=== PATIENT | female | born 1990 | race Caucasian/White ===

== ENCOUNTER 2019-09-26 11:08 | Emergency (ER) | payer SELFPAY ==
[2019-09-26 11:50] LABS: ABSOLUTE BASOPHILS # (AUTO) 0.1 10^3/uL (0.0-0.2); ABSOLUTE LYMPHOCYTES (AUTO) 1.1 10^3/uL (0.5-4.7); ABSOLUTE MONOCYTES (AUTO) 0.7 10^3/uL (0.1-1.4); ABSOLUTE NEUT (AUTO) 10.4 10^3/uL (1.7-8.2); BASOPHILS % (AUTO) 0.8 % (0-2); EOSINOPHILS % (AUTO) 0.3 % (0-6); HEMATOCRIT 45.7 % (36.0-47.0); HEMOGLOBIN 15.3 g/dL (12.0-15.5); LYMPHOCYTES % (AUTO) 9.2 % (13-45); MEAN CORPUSCULAR HEMOGLOBIN 27.6 pg (27.0-33.4); MEAN CORPUSCULAR HGB CONC 33.5 g/dL (32.0-36.0); MEAN CORPUSCULAR VOLUME 82 fl (80-97); MONOCYTES % (AUTO) 5.4 % (3-13); PLATELET COUNT 373 10^3/uL (150-450); RED BLOOD COUNT 5.55 10^6/uL (3.72-5.28); RED CELL DISTRIBUTION WIDTH 14.9 % (11.5-14.0); SEGMENTED NEUTROPHILS % (AUTO) 84.3 % (42-78); TOTAL CELLS COUNTED % (AUTO) 100 %; WHITE BLOOD COUNT 12.4 10^3/uL (4.0-10.5)
[2019-09-26 12:08] LABS: ALBUMIN 5.3 g/dL (3.5-5.0); ALKALINE PHOSPHATASE 95 U/L (38-126); ASPARTATE AMINO TRANSFERASE 18 U/L (14-36); BILIRUBIN,DIRECT 0.1 mg/dL (0.0-0.4); BILIRUBIN,TOTAL 0.5 mg/dL (0.2-1.3); BLOOD UREA NITROGEN 25 mg/dL (7-20); CALCIUM 10.5 mg/dL (8.4-10.2); CARBON DIOXIDE 18 mmol/L (22-30); CHLORIDE 97 mmol/L (98-107); GLUCOSE 389 mg/dL (75-110); POTASSIUM 4.3 mmol/L (3.6-5.0); TOTAL PROTEIN 8.7 g/dL (6.3-8.2)
[2019-09-26 12:19] LABS: ANION GAP 21 (5-19)
[2019-09-26] MEDS ORDERED: RINGERS SOLUTION,LACTATED 1,000 ML IV ONE ×2 (12:48→13:46)
--- NOTE | 2019-09-26 12:48 | ER Document Report ---
Entered by MARTI SHAVER SCRIBE 09/26/19 1157 Acting as scribe for:VANI FALK MD ED Blood Sugar Problem - General Chief Complaint: High Blood Sugar Stated Complaint: HIGH BLOOD SUGAR Time Seen by Provider: 09/26/19 11:24 Primary Care Provider: KIANNA URBINA [NO LOCAL MD] - Follow up as needed Mode of Arrival: Ambulatory Information source: Patient Notes: This 29-year-old female patient with type 1 diabetes presents to the emergency d [facility] today with complaints of elevated blood sugars. Patient states that she lives emergency and she is here currently visiting her best friend. Patient states she forgot to take her insulin last night and is unclear whether or not she took it this morning prior to arrival. Patient complains of nausea but has not vomited. Patient reports that she normally takes 50 units of Lantus in the morning and at night and then 7 units of NovoLog prior to meals. - Related Data Allergies/Adverse Reactions: No Known Allergies Allergy (Verified 09/26/19 11:26) Past Medical History - General Information source: Patient - Social History Smoking Status: Current Every Day Smoker Cigarette use (# per day): Yes Frequency of alcohol use: Social Drug Abuse: None Lives with: Family Family History: Reviewed & Not Pertinent Patient has homicidal ideation: No Endocrine Medical History: Reports: Hx Diabetes Mellitus Type 1 Past Surgical History: Reports: Hx Cholecystectomy, Hx Tubal Ligation Review of Systems - Review of Systems Constitutional: See HPI, Other - Elevated blood sugar EENT: No symptoms reported Cardiovascular: No symptoms reported Respiratory: No symptoms reported Gastrointestinal: See HPI, Nausea Genitourinary: No symptoms reported Female Genitourinary: No symptoms reported Musculoskeletal: No symptoms reported Skin: No symptoms reported Hematologic/Lymphatic: No symptoms reported Neurological/Psychological: No symptoms reported -: Yes All other systems reviewed and negative Physical Exam - Vital signs Vitals: Temp 99.1 F 09/26/19 11:11 - Notes Notes: Physical Exam: General: Alert, ketone odor on breathe. HEENT: Normocephalic. Atraumatic. PERRL. Extraocular movements intact. Oropharynx clear. Dry mucous membranes. Neck: Supple. Non-tender. Respiratory: No respiratory distress. Clear and equal breath sounds bilaterally. Cardiovascular: Tachycardic, regular rhythm. Abdominal: Normal Inspection. Non-tender. No distension. Normal Bowel Sounds. Back: No gross abnormalities. Extremities: Moves all four extremities. Upper extremities: Normal inspection. Normal ROM. Lower extremities: Normal inspection. No edema. Normal ROM. Neurological: Normal cognition. AAOx4. Normal speech. Psychological: Normal affect. Normal Mood. Skin: Warm. Dry. Normal color. Course - Re-evaluation Re-evalutation: 09/26/19 12:50 The patient is not a very good historian. Initially she stated that she was late to take her dose of NovoLog. She states she normally takes it after lunch. She was telling me this at 12 noon. Eventually I was able to determine that she takes Lantus 50 units twice daily and did not take it last night and probably did not take it this morning. She takes NovoLog 7 units before meals. It is very vague about what insulin she did take this morning. EMS initially got a blood sugar of 547. When the patient arrived to the emergency room the sugar was 413 on Accu-Chek, about 25 minutes later and perhaps 500 mL's of LR later, her sugar was 389. Her serum CO2 is 18, anion gap is 21, and BUN is 25. Due to the unknown amount of insulin that may be getting absorbed as she gets hydrated, and the fact that she is only mildly acidotic, we will continue to hydrate and follow her sugars. 09/26/19 14:57 Accu-Chek is now down to 229 without giving any insulin, only IV fluids. She states she is feeling much better, she has no nauseousness, and has been tolerating p.o. fluids well. She is on her third liter of IV fluids at this time. When that liter has completed she will be discharged home with some Zofran in case she is nauseated. She understands the need to continue drinking fluids, start eating lightly, and to check her sugars and dose her insulin accordingly. - Vital Signs Vital signs: Temp Pulse Resp BP Pulse Ox 99.1 F 21 H 113/84 96 09/26/19 11:11 09/26/19 13:01 09/26/19 13:00 09/26/19 12:01 - Laboratory Result Diagrams: 09/26/19 11:40 09/26/19 11:40 Laboratory results interpreted by me: 09/26/19 09/26/19 09/26/19 11:14 11:40 11:40 WBC 12.4 H RBC 5.55 H RDW 14.9 H Lymph % (Auto) 9.2 L Absolute Neuts (auto) 10.4 H Seg Neutrophils % 84.3 H Sodium 135.7 L Chloride 97 L Carbon Dioxide 18 L Anion Gap 21 H BUN 25 H Glucose 389 H POC Glucose 413 H* Calcium 10.5 H Total Protein 8.7 H Albumin 5.3 H Urine Protein Urine Glucose (UA) Urine Ketones Ur Leukocyte Esterase 09/26/19 09/26/19 14:07 14:47 WBC RBC RDW Lymph % (Auto) Absolute Neuts (auto) Seg Neutrophils % Sodium Chloride Carbon Dioxide Anion Gap BUN Glucose POC Glucose 210 H Calcium Total Protein Albumin Urine Protein 30 H Urine Glucose (UA) >=500 H Urine Ketones 80 H Ur Leukocyte Esterase TRACE H - EKG Interpretation by Me EKG shows normal: Sinus rhythm, Edmond, Intervals, QRS Complexes, ST-T Waves Rate: Normal - 98 Rhythm: NSR Critical Care Note - Critical Care Note Total time excluding time spent on procedures (mins): 35 Comments: Please 35 minutes spent examining the patient and trying to get a clear history. Multiple rechecks to see how she is doing with her nauseousness, and her p.o. intake. Rechecks of her sugars watching them come down without giving any insulin. Checking on her IV fluids to ensure they are infusing. I have called to get an IV pole so that the fluids would hang higher and run faster. I have ensured that the initial IV was carefully secured as it was precarious when she first arrived. I have ensured that she understands how to hold her hand to get maximum flow. I have checked to find that her fluids were disconnected to go to the restroom and then were not reconnected when she came back to the room for quite some time. Discharge - Discharge Clinical Impression: Dehydration Diabetic ketoacidosis Qualifiers: Diabetes mellitus type: type 1 Diabetes mellitus complication detail: without coma Qualified Code(s): E10.10 - Type 1 diabetes mellitus with ketoacidosis without coma Condition: Stable Disposition: HOME, SELF-CARE Additional Instructions: Take Zofran for nausea if needed. Drink plenty of fluids throughout the day today. Eat lightly today. Check your sugars regularly and dose your insulin accordingly. Follow-up with your primary care provider as needed. RETURN TO THE EMERGENCY ROOM IF ANY NEW OR WORSENING SYMPTOMS. Referrals: LOCALMD,NO [NO LOCAL MD] - Follow up as needed I personally performed the services described in the documentation, reviewed and edited the documentation which was dictated to the scribe in my presence, and it accurately records my words and actions.
[2019-09-26 14:31] LABS: APPEARANCE,URINE CLEAR; BILIRUBIN,URINE NEGATIVE (NEGATIVE); COLOR,URINE YELLOW; GLUCOSE, URINE >=500 mg/dL (NEGATIVE); KETONES,URINE 80 mg/dL (NEGATIVE); LEUKOCYTE ESTERASE,URINE TRACE (NEGATIVE); NITRITE,URINE NEGATIVE (NEGATIVE); PROTEIN,URINE 30 mg/dL (NEGATIVE); URINE SPECIFIC GRAVITY 1.026; UROBILINOGEN,URINE NEGATIVE mg/dL (<2.0)
[2019-09-26] MEDS ORDERED: ONDANSETRON ODT 4 MG TAB (6 TAB/ER DISP) PO PRN (15:04)
[2019-09-26 15:22] VITALS: BP 129/81
--- NOTE | 2019-09-27 13:19 | EKG REPORT ---
SEVERITY:- NORMAL ECG - SINUS RHYTHM : Confirmed by: Jere Elliott 27-Sep-2019 13:18:45
== END 2019-09-26 15:43 | disposition home or self-care (01) ==
LOC: ER 11:08
DX: E10.10 Type 1 diabetes mellitus with ketoacidosis without coma (principal); E86.0 Dehydration; E10.65 Type 1 diabetes mellitus with hyperglycemia; R11.0 Nausea; Z79.4 Long term (current) use of insulin; F17.210 Nicotine dependence, cigarettes, uncomplicated
CPT/HCPCS: 93005; 99291; 96360; 96361; 36415; 82962; 85025; 81025; 80053; 81001; 93010; J7120

== ENCOUNTER 2019-10-23 22:14 | Emergency (ER) | payer SELFPAY ==
[2019-10-24] MEDS ORDERED: ACETAMINOPHEN 325 MG TABLET PO ONE (00:29)
[2019-10-24 03:04] VITALS: BP 132/78
--- NOTE | 2019-10-24 05:19 | ER Document Report ---
Entered by MARTI SHAVER SCRIBE 10/24/19 0200 Acting as scribe for:RIVKA GALVAN DO ED Extremity Problem, Lower - General Chief Complaint: Skin Problem Stated Complaint: BLISTERS ON FEET Time Seen by Provider: 10/24/19 01:47 Information source: Patient Notes: This 29 year old female patient presents to the emergency department today with concerns of pena to bilateral feet. Patient reports that she was chasing after her dog on asphalt barefoot for around 2 minutes today. Patient is a type I diabetic and she is concerned about possible infection of blistered feet. - Related Data Allergies/Adverse Reactions: No Known Allergies Allergy (Verified 10/24/19 00:23) Home Medications: INSULIN Past Medical History - General Information source: Patient - Social History Smoking Status: Current Every Day Smoker Cigarette use (# per day): Yes Frequency of alcohol use: None Drug Abuse: None Lives with: Family Family History: Reviewed & Not Pertinent Patient has homicidal ideation: No Endocrine Medical History: Reports: Hx Diabetes Mellitus Type 1 Past Surgical History: Reports: Hx Cholecystectomy, Hx Tubal Ligation Review of Systems - Review of Systems Constitutional: No symptoms reported EENT: No symptoms reported Cardiovascular: No symptoms reported Respiratory: No symptoms reported Gastrointestinal: No symptoms reported Genitourinary: No symptoms reported Female Genitourinary: No symptoms reported Musculoskeletal: No symptoms reported Skin: See HPI, Lesions Hematologic/Lymphatic: No symptoms reported Neurological/Psychological: No symptoms reported -: Yes All other systems reviewed and negative Physical Exam - Vital signs Vitals: Temp Pulse Resp BP Pulse Ox 98.0 F 87 18 148/88 H 100 10/23/19 22:15 10/23/19 22:15 10/23/19 22:15 10/23/19 22:15 10/23/19 22:15 - Notes Notes: Physical Exam: General: Alert, appears well. HEENT: Normocephalic. Atraumatic. PERRLA. Extraocular movements intact. Oropharynx clear. Neck: Supple. Respiratory: No respiratory distress. Abdominal: Normal Inspection. No distension. Extremities: Moves all four extremities. Neurological: Normal cognition. AAOx4. Normal speech. Psychological: Normal affect. Normal Mood. Skin: Blisters to pads of feet bilaterally, about 6 cm in diameter b/l. Course - Re-evaluation Re-evalutation: 10/24/19 Patient is a 29-year-old female who walks on hot concrete and has blisters to the bottom of her feet. States she is a severe diabetic. Blisters drained. Please see procedure note. Offered to drain them versus keeping them closed. Patient opted to drain them so she could walk on them. Will be started on Keflex. Tetanus up-to-date. Follow-up with PMD. Return if further complaints or concerns. Understands and agrees with plan. Instructed to clean her feet daily and wear closed toed shoes. No other injuries. - Vital Signs Vital signs: Temp Pulse Resp BP Pulse Ox 97.9 F 81 16 132/78 H 100 10/24/19 03:00 10/24/19 03:00 10/24/19 03:00 10/24/19 03:00 10/24/19 03:00 Procedures - Incision and Drainage Left Foot Type: Simple Incision Method: Incision made with needle Amount/type of drainage: serous Right Foot Type: Simple Incision Method: Incision made with needle Amount/type of drainage: serous Discharge - Discharge Clinical Impression: Second degree burn of plantar aspect of foot Qualifiers: Encounter type: initial encounter Laterality: unspecified laterality Qualified Code(s): T25.229A - Burn of second degree of unspecified foot, initial encounter Condition: Stable Disposition: HOME, SELF-CARE Instructions: Pena ([facility]) Additional Instructions: Please follow-up with your doctor this week. Prescriptions: Cephalexin Monohydrate [Keflex 500 mg Capsule] 500 mg PO Q6H 7 Days #30 capsule I personally performed the services described in the documentation, reviewed and edited the documentation which was dictated to the scribe in my presence, and it accurately records my words and actions.
== END 2019-10-24 03:06 | disposition home or self-care (01) ==
LOC: ER 22:14
DX: T25.222A Burn of second degree of left foot, initial encounter (principal); T25.221A Burn of second degree of right foot, initial encounter; X19.XXXA Contact with other heat and hot substances, initial encounter; Y92.009 Unspecified place in unspecified non-institutional (private) residence as the place of occurrence of the external cause; E10.9 Type 1 diabetes mellitus without complications; Z79.4 Long term (current) use of insulin; F17.210 Nicotine dependence, cigarettes, uncomplicated; Z90.49 Acquired absence of other specified parts of digestive tract; Z98.51 Tubal ligation status
CPT/HCPCS: 99283

== ENCOUNTER 2019-10-28 19:00 | Emergency (ER) | payer SELFPAY ==
[2019-10-28 19:12] VITALS: BP 131/94
== END 2019-10-28 20:30 | disposition left against medical advice (07) ==
LOC: ER 19:00
DX: Z53.21 Procedure and treatment not carried out due to patient leaving prior to being seen by health care provider (principal)

== ENCOUNTER 2019-10-28 23:00 | Inpatient (IN) | payer SELFPAY ==
[2019-10-29] MEDS ORDERED: NORMAL SALINE 1000 ML 1,000 ML IV ONE (00:22)
--- NOTE | 2019-10-29 00:34 | ER Document Report ---
ED Medical Screen (RME) - General Chief Complaint: High Blood Sugar Stated Complaint: MIGRAINE Time Seen by Provider: 10/29/19 00:32 Notes: HPI: 29-year-old female who is an insulin-dependent diabetic presenting with generalized headache, back pain and nausea today. Patient states it feels similar to when she ended up in a diabetic coma last year with DKA. No chest pain shortness of breath. Patient states that her blood sugar earlier today was 209. PHYSICAL EXAMINATION: Patient appears moderately uncomfortable. She is moderately tachycardic. Limited exam in triage. She is answering all questions appropriately I have greeted and performed a rapid initial assessment of this patient. A comprehensive ED assessment and evaluation of the patient, analysis of test results and completion of medical decision making process will be conducted by an additional ED providers. - Related Data Allergies/Adverse Reactions: No Known Allergies Allergy (Verified 10/24/19 00:23) Past Medical History Endocrine Medical History: Reports: Hx Diabetes Mellitus Type 1 Past Surgical History: Reports: Hx Cholecystectomy, Hx Tubal Ligation Physical Exam - Vital signs Vitals: Temp Pulse Resp BP Pulse Ox 98.2 F 134 H 20 131/94 H 100 10/28/19 23:49 10/28/19 23:49 10/28/19 23:49 10/28/19 23:49 10/28/19 23:49 Course - Vital Signs Vital signs: Temp Pulse Resp BP Pulse Ox 98.2 F 134 H 20 131/94 H 100 10/28/19 23:49 10/28/19 23:49 10/28/19 23:49 10/28/19 23:49 10/28/19 23:49
[2019-10-29] MEDS ORDERED: PROMETHAZINE HCL INJ 25 MG/1 ML VIAL IM ONE (01:27)
[2019-10-29] MEDS ORDERED: DIPHENHYDRAMINE HCL 50 MG/ML VIAL IM ONE (02:01)
[2019-10-29] MEDS ORDERED: LORAZEPAM INJ 2 MG/1 ML VIAL IV ONE (02:24)
[2019-10-29 02:48] LABS: ABSOLUTE BASOPHILS # (AUTO) 0.2 10^3/uL (0.0-0.2); ABSOLUTE EOSINOPHILS # (AUTO) 0.1 10^3/uL (0.0-0.6); ABSOLUTE LYMPHOCYTES (AUTO) 2.2 10^3/uL (0.5-4.7); EOSINOPHILS % (AUTO) 0.3 % (0-6); HEMOGLOBIN 14.4 g/dL (12.0-15.5); LYMPHOCYTES % (AUTO) 11.1 % (13-45); MONOCYTES % (AUTO) 5.2 % (3-13); TOTAL CELLS COUNTED % (AUTO) 100 %
[2019-10-29] MEDS: RINGERS SOLUTION,LACTATED 1,000 ML IV PRN ×2 (02:50→02:52)
[2019-10-29 02:56] LABS: ABSOLUTE NEUT (AUTO) 16.2 10^3/uL (1.7-8.2); BASOPHILS % (AUTO) 0.9 % (0-2); HEMATOCRIT 46.8 % (36.0-47.0); MEAN CORPUSCULAR HEMOGLOBIN 28.1 pg (27.0-33.4); MEAN CORPUSCULAR HGB CONC 30.7 g/dL (32.0-36.0); MEAN CORPUSCULAR VOLUME 92 fl (80-97); PLATELET COUNT 465 10^3/uL (150-450); RED BLOOD COUNT 5.11 10^6/uL (3.72-5.28); RED CELL DISTRIBUTION WIDTH 16.3 % (11.5-14.0); SEGMENTED NEUTROPHILS % (AUTO) 82.5 % (42-78); WHITE BLOOD COUNT 19.7 10^3/uL (4.0-10.5)
[2019-10-29 02:57] LABS: VENOUS BLOOD BASE EXCESS -24.6 mmol/L; VENOUS BLOOD HCO3 3.6 mmol/L (20-32)
[2019-10-29 02:58] LABS: ALBUMIN 4.8 g/dL (3.5-5.0); ALKALINE PHOSPHATASE 119 U/L (38-126); ASPARTATE AMINO TRANSFERASE 22 U/L (14-36); BILIRUBIN,TOTAL 0.4 mg/dL (0.2-1.3); BLOOD UREA NITROGEN 22 mg/dL (7-20); CALCIUM 9.5 mg/dL (8.4-10.2); POTASSIUM 5.8 mmol/L (3.6-5.0)
[2019-10-29 02:59] LABS: VENOUS BLOOD PCO2 12.8 mmHg (35-63); VENOUS BLOOD PH 7.06 (7.30-7.42)
--- NOTE | 2019-10-29 03:07 | ER Document Report ---
ED General - General Chief Complaint: High Blood Sugar Stated Complaint: MIGRAINE Time Seen by Provider: 10/29/19 00:32 Notes: Patient is a 29-year-old female with a history of type 1 diabetes that comes emergency department for chief complaint of nausea, vomiting, generalized body aches, headache, thirst, frequent urination. Patient states that she felt similar when she was in DKA the last time which was about a year ago. She states her blood glucose earlier today was 209, she states she has been compliant with her insulin, she denies fever, she denies any obvious sick contacts, she denies shortness of breath or chest pain. Patient denies alcohol, recreational drugs. Past medical history of tubal ligation and cholecystectomy. - Related Data Allergies/Adverse Reactions: No Known Allergies Allergy (Verified 10/24/19 00:23) Past Medical History - General Information source: Patient - Social History Smoking Status: Current Every Day Smoker Frequency of alcohol use: None Drug Abuse: None Lives with: Friend Family History: Reviewed & Not Pertinent Endocrine Medical History: Reports: Hx Diabetes Mellitus Type 1 Past Surgical History: Reports: Hx Cholecystectomy, Hx Tubal Ligation - Immunizations Hx Diphtheria, Pertussis, Tetanus Vaccination: Yes Review of Systems - Review of Systems Constitutional: See HPI EENT: No symptoms reported Cardiovascular: No symptoms reported Respiratory: No symptoms reported Gastrointestinal: See HPI Genitourinary: No symptoms reported Female Genitourinary: No symptoms reported Musculoskeletal: No symptoms reported Skin: No symptoms reported Hematologic/Lymphatic: No symptoms reported Neurological/Psychological: No symptoms reported Physical Exam - Vital signs Vitals: Temp Pulse Resp BP Pulse Ox 98.2 F 134 H 20 131/94 H 100 10/28/19 23:49 10/28/19 23:49 10/28/19 23:49 10/28/19 23:49 10/28/19 23:49 - Notes Notes: GENERAL: Patient is very ill-appearing with Kussmaul respirations HEAD: Normocephalic, atraumatic. EYES: Pupils equal, round, and reactive to light. Extraocular movements intact. ENT: Oral mucosa parched, tongue midline. Oropharynx unremarkable. Airway patent. LUNGS: Clear to auscultation bilaterally, no wheezes, rales, or rhonchi. Mild tachypnea HEART: Tachycardia with normal rhythm, no murmur ABDOMEN: Mild nonspecific tenderness, no guarding EXTREMITIES: Moves all 4 extremities spontaneously. No edema, normal radial and dorsalis pedis pulses bilaterally. No cyanosis. BACK: no cervical, thoracic, lumbar midline tenderness. No saddle anesthesia, normal distal neurovascular exam. Moves all extremities in full range of motion. NEUROLOGICAL: Alert and oriented x3. Normal speech. Cranial nerves II through XII grossly intact. Strength 5/5 in all extremities. PSYCH: Agitated and anxious SKIN: Very pale Course - Re-evaluation Re-evalutation: Patient is very ill-appearing on my evaluation, she is vomiting in the room. She is very pale, she has obvious Kussmaul respirations, very dry mucous membranes, she is very tachycardic. Very high suspicion of significant diabetic ketoacidosis. Nursing staff has attempted blood and IV access multiple times now, I evaluated the patient with an ultrasound and attempted 1 location but was unsuccessful, patient has no noted good EJ access, currently we have no access at all and patient is critically ill. I discussed with patient, she verbally consented to central line but refused IJ location. Patient vomited again after her Phenergan IM from triage, she was given Benadryl IM. I discussed with Dr. Reed, he agrees with proceeding with femoral central line since patient is allowing this. Finally we were able to obtain labs with a central line, patient did vomit during this placement but she was given Ativan afterwards and significantly improved after this. CBC does show leukocytosis at 19,000 with elevation of neutrophils but no bandemia, unremarkable hemoglobin. Venous blood gas shows severe metabolic acidosis with pH of 7.06 and CO2 of 12.8. Potassium 5.8, bicarb is less than 5, glucose is 725, is negative. Pending urinalysis and chest x-ray, EKG does not show significant changes. Patient reevaluated, she does look slightly improved after 2 L boluses of lactated Ringer's but she is still tachycardic and ill-appearing. Starting on insulin drip at 0.1 units/kg/h. Patient will require admission to the ICU. Patient does state agreement with this plan. I discussed with Meño Sun PA-C, on-call for the ICU, patient is accepted to their service. - Vital Signs Vital signs: Temp Pulse Resp BP Pulse Ox 98.8 F 134 H 24 H 131/89 H 100 10/29/19 04:04 10/28/19 23:49 10/29/19 05:01 10/29/19 05:01 10/29/19 05:01 - Laboratory Result Diagrams: 10/29/19 02:32 10/29/19 02:32 Laboratory results interpreted by me: 10/29/19 10/29/19 10/29/19 02:32 02:32 02:32 WBC 19.7 H MCHC 30.7 L RDW 16.3 H Plt Count 465 H Lymph % (Auto) 11.1 L Absolute Neuts (auto) 16.2 H Seg Neutrophils % 82.5 H VBG pH 7.06 L* VBG pCO2 12.8 L* VBG HCO3 3.6 L Sodium 128.6 L Potassium 5.8 H Chloride 94 L Carbon Dioxide < 5 L* BUN 22 H Est GFR (MDRD) Non-Af 53 L Glucose 725 H* Urine Protein Urine Glucose (UA) Urine Ketones Urine Blood 10/29/19 04:30 WBC MCHC RDW Plt Count Lymph % (Auto) Absolute Neuts (auto) Seg Neutrophils % VBG pH VBG pCO2 VBG HCO3 Sodium Potassium Chloride Carbon Dioxide BUN Est GFR (MDRD) Non-Af Glucose Urine Protein 100 H Urine Glucose (UA) >=500 H Urine Ketones 80 H Urine Blood LARGE H - EKG Interpretation by Me Additional EKG results interpreted by me: EKG shows sinus tachycardia at a rate of 135, normal axis, QTC of 456, no T wave inversions or ST segment changes in consecutive leads Procedures - Central Line right femoral Consent obtained: Yes - verbal Central line pre-insertion: Sterile PPE donned, Chloraprep applied Central line lumen type: Triple Anesthetic type: 1% Lidocaine mL's of anesthesia: 5 Ultrasound guided: Yes Line secured with sutures: Yes Central line post-insertion: Blood return from lumens, Biopatch applied, Sutured, Sterile dressing applied Number of attempts: 1 Complications: No - patient vomited, but no complications with procedure Critical Care Note - Critical Care Note Total time excluding time spent on procedures (mins): 35 - Diabetic ketoacidosis Comments: Please allow 35 minutes of critical care time for evaluation and management of this critically ill patient with severe diabetic ketoacidosis. Interventions in cluded IV fluids, insulin drip, multiple re-evaluations, and consultation and admission to the ICU. Discharge - Discharge Clinical Impression: DKA (diabetic ketoacidoses) Qualifiers: Diabetes mellitus type: type 1 Diabetes mellitus complication detail: without coma Qualified Code(s): E10.10 - Type 1 diabetes mellitus with ketoacidosis without coma Vomiting Qualifiers: Vomiting type: unspecified Vomiting Intractability: intractable Nausea presence: with nausea Qualified Code(s): R11.2 - Nausea with vomiting, unspecified Condition: Serious Disposition: ADMITTED INPATIENT Admitting Provider: Shabbir (Rn Sane) Morris Sun PA-C Unit Admitted: ICU
[2019-10-29 03:08] LABS: CHLORIDE 94 mmol/L (98-107)
[2019-10-29 03:10] LABS: CARBON DIOXIDE < 5 mmol/L (22-30); GLUCOSE 725 mg/dL (75-110)
[2019-10-29] MEDS ORDERED: INSULIN REG, HUMAN 100 UNIT/ML 3 ML VIAL (PYX) IV ONE (03:11)
[2019-10-29] MEDS ORDERED: RINGERS SOLUTION,LACTATED 1,000 ML IV PRN ×2 (04:18→06:41)
[2019-10-29 04:58] LABS: APPEARANCE,URINE SLIGHTLY-CLOUDY; BILIRUBIN,URINE NEGATIVE (NEGATIVE); COLOR,URINE YELLOW; GLUCOSE, URINE >=500 mg/dL (NEGATIVE); KETONES,URINE 80 mg/dL (NEGATIVE); LEUKOCYTE ESTERASE,URINE NEGATIVE (NEGATIVE); NITRITE,URINE NEGATIVE (NEGATIVE); PROTEIN,URINE 100 mg/dL (NEGATIVE); UROBILINOGEN,URINE NEGATIVE mg/dL (<2.0)
--- NOTE | 2019-10-29 05:18 | RADIOLOGY REPORT (SQ) ---
EXAM DESCRIPTION: XR CHEST 1 VIEW COMPLETED DATE/TME: 10/29/2019 04:22 CLINICAL HISTORY: 29 years, Female, leukoyctosis, tachycardia, severe DKA COMPARISON: None. NUMBER OF VIEWS: 1 TECHNIQUE: Portable chest LIMITATIONS: None. FINDINGS: The heart size is normal. Lungs are clear. No pneumothorax IMPRESSION: Negative chest copyright 2010 [employer]- All Rights Reserved
[2019-10-29 06:14] LABS: URINE AMPHETAMINES SCREEN NEGATIVE; URINE BARBITURATES SCREEN NEGATIVE; URINE BENZODIAZEPINES SCREEN NEGATIVE; URINE COCAINE SCREEN NEGATIVE; URINE MARIJUANA (THC) SCREEN NEGATIVE; URINE METHADONE SCREEN NEGATIVE; URINE PHENCYCLIDINE SCREEN NEGATIVE
[2019-10-29] MEDS ORDERED: INSULIN REG, HUMAN 100 UNIT/ML 3 ML VIAL (PYX) ONE (06:20)
[2019-10-29] MEDS ORDERED: DEXTROSE 40% GEL 15 GM TUBE PO PRN ×2 (06:49)
[2019-10-29] MEDS ORDERED: NORMAL SALINE 100 ML with INSULIN REGULAR, HUMAN 100 UNIT IV PRN ×2 (06:49)
[2019-10-29] MEDS ORDERED: DEXTROSE 50%-WATER 25 GM/50 ML DISP.SYRIN IV PRN ×2 (06:49)
[2019-10-29] MEDS ORDERED: GLUCAGON,HUMAN RECOMB 1 MG INJ IM PRN (06:49)
[2019-10-29 07:15] LABS: HEMATOCRIT 43.6 % (36.0-47.0); HEMOGLOBIN 14.2 g/dL (12.0-15.5); MEAN CORPUSCULAR HEMOGLOBIN 28.2 pg (27.0-33.4); MEAN CORPUSCULAR HGB CONC 32.7 g/dL (32.0-36.0); PLATELET COUNT 389 10^3/uL (150-450); RED BLOOD COUNT 5.06 10^6/uL (3.72-5.28); WHITE BLOOD COUNT 24.7 10^3/uL (4.0-10.5)
--- NOTE | 2019-10-29 07:15 | CRITICAL CARE ADMISSION REPORT ---
HPI Date:: 10/29/19 Time:: 06:50 Reason for ICU Reason:: DKA Admission Date/Time & PCP: Admission Date/Time: 10/29/19 05:19 Primary Care Provider: HPI: 29-year-old female, history of DM 1 who presented to the ED with nausea, vomiting, body aches, headaches, thirst and frequent urination. Patient states that she has been compliant with her insulin and that her glucose earlier today was 209. She denies any source of known infection and has not had any obvious sick contacts. Patient also denies alcohol, recreational drugs or any other medical history. In the ED, glucose was found to be severely elevated. Bicarbonate level was 5 and CO2 level was 12. Patient was started on treatment for DKA with severe anion gap acidosis. She was transferred to the intensive care unit for severe DKA and metabolic derangement. She was started on IV fluids and insulin drip. History obtained from:: Medical records, emergency room practitioner. - Diagnosis/Plan (1) DKA (diabetic ketoacidoses) Qualifiers: Diabetes mellitus type: type 1 Diabetes mellitus complication detail: without coma Qualified Code(s): E10.10 - Type 1 diabetes mellitus with ketoacidosis without coma Is this a current diagnosis for this admission?: Yes Plan: Follow DKA protocol. Continue insulin drip until anion gap acidosis resolves. Continue IV fluids with LR until glucose reaches 160. At that time, transition patient to D5 normal saline for glucose repletion. Follow serial renal panel and monitor potassium closely. Past Medical History Endocrine Medical History: Reports: Diabetes Mellitus Type 1 Past Surgical History Past Surgical History: Reports: Cholecystectomy, Tubal Ligation Social/Family History - Social History Smoking Status: Current Every Day Smoker - Medication/Allergies Home Medications: Cephalexin Monohydrate [Keflex 500 mg Capsule] 500 mg PO Q6H 7 Days #30 capsule 10/24/19 Allergies/Adverse Reactions: No Known Allergies Allergy (Verified 10/24/19 00:23) Review of Systems Constitutional: PRESENT: anorexia Eyes: ABSENT: visual disturbances Ears: ABSENT: hearing changes Nose, Mouth, and Throat: PRESENT: headache(s) Respiratory: PRESENT: other - Tachypnea Gastrointestinal: PRESENT: nausea, vomiting Physical Exam Vital Signs: Temp Pulse Resp BP Pulse Ox 98.8 F 134 H 24 H 131/89 H 100 10/29/19 04:04 10/28/19 23:49 10/29/19 05:01 10/29/19 05:01 10/29/19 05:01 Intake & Output 10/27/19 10/28/19 10/29/19 06:59 06:59 06:59 Intake Total 1033 Balance 1033 Weight 72.575 kg Weight/Height Weight 72.575 kg Height 5 ft 7 in General appearance: PRESENT: mild distress Head exam: PRESENT: atraumatic Eye exam: PRESENT: EOMI, PERRLA Ear exam: PRESENT: normal external ear exam Mouth exam: PRESENT: dry mucosa, neck supple Neck exam: PRESENT: full ROM Respiratory exam: PRESENT: clear to auscultation malia Cardiovascular exam: PRESENT: RRR Pulses: PRESENT: normal radial pulses GI/Abdominal exam: PRESENT: normal bowel sounds, soft Extremities exam: ABSENT: pedal edema Musculoskeletal exam: PRESENT: full ROM, normal inspection Neurological exam: PRESENT: alert, CN II-XII grossly intact Psychiatric exam: PRESENT: flat affect Skin exam: PRESENT: normal color. ABSENT: petechiae, skin tears Laboratory/Radiographs Laboratory Results: 10/29/19 02:32 10/29/19 02:32 10/29/19 10/29/19 10/29/19 02:32 02:32 02:32 WBC 19.7 H RBC 5.11 Hgb 14.4 Hct 46.8 MCV 92 MCH 28.1 MCHC 30.7 L RDW 16.3 H Plt Count 465 H Seg Neutrophils % 82.5 H VBG pH 7.06 L* VBG pCO2 12.8 L* VBG HCO3 3.6 L VBG Base Excess -24.6 Sodium 128.6 L Potassium 5.8 H Chloride 94 L Carbon Dioxide < 5 L* Anion Gap Not Reportable BUN 22 H Creatinine 1.18 Est GFR ( Amer) > 60 Glucose 725 H* Calcium 9.5 Magnesium 2.1 Total Bilirubin 0.4 AST 22 Alkaline Phosphatase 119 Total Protein 8.0 Albumin 4.8 Serum HCG, Qual Urine Color Urine Appearance Urine pH Ur Specific [place] Urine Protein Urine Glucose (UA) Urine Ketones Urine Blood Urine Nitrite Ur Leukocyte Esterase Urine WBC (Auto) Urine RBC (Auto) 10/29/19 10/29/19 02:32 04:30 WBC RBC Hgb Hct MCV MCH MCHC RDW Plt Count Seg Neutrophils % VBG pH VBG pCO2 VBG HCO3 VBG Base Excess Sodium Potassium Chloride Carbon Dioxide Anion Gap BUN Creatinine Est GFR ( Amer) Glucose Calcium Magnesium Total Bilirubin AST Alkaline Phosphatase Total Protein Albumin Serum HCG, Qual NEGATIVE Urine Color YELLOW Urine Appearance SLIGHTLY-CLOUDY Urine pH 6.0 Ur Specific [place] 1.020 Urine Protein 100 H Urine Glucose (UA) >=500 H Urine Ketones 80 H Urine Blood LARGE H Urine Nitrite NEGATIVE Ur Leukocyte Esterase NEGATIVE Urine WBC (Auto) 44 Urine RBC (Auto) >182 Impressions: Chest X-Ray 10/29/19 04:22 IMPRESSION: Negative chest copyright 2011 [employer]- All Rights Reserved All labs, radiographs, diagnostic studies and EKGs were personally reviewed: Yes In addition, reports of radiographic and diagnostic studies were read: Yes Critical Time Critical Time (minutes): 72 -: The care of a critically ill patient is dynamic. This note represents a static moment in the admission process. Orders and treatments may be given simultaneously and urgently, and time is not off premise service representative of the treatment process. This patient requires Critical Care secondary to life threatening organ or limb dysfunction. Without Critical Care services, the patient is at risk for increased mortality and morbidity.
[2019-10-29 07:28] LABS: BLOOD UREA NITROGEN 20 mg/dL (7-20); CALCIUM 9.3 mg/dL (8.4-10.2); GLUCOSE 387 mg/dL (75-110); PHOSPHORUS 3.5 mg/dL (2.5-4.5)
[2019-10-29 07:46] LABS: CHLORIDE 104 mmol/L (98-107)
[2019-10-29 07:59] LABS: POTASSIUM 4.7 mmol/L (3.6-5.0)
[2019-10-29 08:01] LABS: CARBON DIOXIDE < 5 mmol/L (22-30)
[2019-10-29 08:11] LABS: MEAN CORPUSCULAR VOLUME 86 fl (80-97)
[2019-10-29] MEDS ORDERED: DEXTROSE 5%-1/2 NORMAL SALINE 1,000 ML IV PRN (09:33)
[2019-10-29 11:55] LABS: ANION GAP 12 (5-19); BLOOD UREA NITROGEN 19 mg/dL (7-20); CALCIUM 8.7 mg/dL (8.4-10.2); CARBON DIOXIDE 14 mmol/L (22-30); CHLORIDE 109 mmol/L (98-107); GLUCOSE 112 mg/dL (75-110); POTASSIUM 4.3 mmol/L (3.6-5.0)
[2019-10-29] MEDS: HEPARIN SOD (PORCINE) 5,000 UNIT/ML 1 ML VIAL SUBCUT SCH ×2 (13:50→21:22)
[2019-10-29 16:19] LABS: ANION GAP 7 (5-19); BLOOD UREA NITROGEN 17 mg/dL (7-20); CALCIUM 8.1 mg/dL (8.4-10.2); CARBON DIOXIDE 18 mmol/L (22-30); CHLORIDE 110 mmol/L (98-107); GLUCOSE 87 mg/dL (75-110); POTASSIUM 3.9 mmol/L (3.6-5.0)
--- NOTE | 2019-10-29 19:21 | EKG REPORT ---
SEVERITY:- ABNORMAL ECG - SINUS TACHYCARDIA PROBABLE LEFT ATRIAL ABNORMALITY NONSPECIFIC T ABNORMALITIES, INFERIOR LEADS : Confirmed by: Jere Elliott 29-Oct-2019 19:20:05
[2019-10-29] MEDS ORDERED: INSULIN GLARGINE,HUM.REC.ANLOG 1,000 UNIT/10 ML VIAL SUBCUT SCH (19:45)
[2019-10-29] MEDS ORDERED: ACETAMINOPHEN 325 MG TABLET PO PRN (19:46)
--- NOTE | 2019-10-29 19:47 | Progress Note ---
Provider Note Provider Note: Signout received from family and consumer sciences professor. Will disco ahead and discontinue insulin drip as gap is closed. Placed diet. Bridge with Lantus. Sliding scale insulin coverage. Monitor CBC as significant for severe leukocytosis. Chest x-ray reviewed which was normal. Urinalysis also negative for infection. Check blood culture leukocytosis.
[2019-10-29] MEDS ORDERED: INSULIN GLARGINE,HUM.REC.ANLOG 1,000 UNIT/10 ML VIAL (PYX) SUBCUT PRN (20:20)
[2019-10-29 20:40] LABS: ANION GAP 6 (5-19); BLOOD UREA NITROGEN 14 mg/dL (7-20); CARBON DIOXIDE 17 mmol/L (22-30); CHLORIDE 109 mmol/L (98-107); GLUCOSE 139 mg/dL (75-110); POTASSIUM 3.8 mmol/L (3.6-5.0)
[2019-10-29] MEDS ORDERED: INSULIN GLARGINE,HUM.REC.ANLOG 1,000 UNIT/10 ML VIAL (PYX) SUBCUT ONE (20:51)
[2019-10-29] MEDS: TRAMADOL HCL 50 MG TABLET PO PRN (21:33)
[2019-10-29] MEDS: INSULIN LISPRO 100 UNIT/ML 3 ML VIAL SUBCUT SCH (22:24)
[2019-10-30 00:17] LABS: ANION GAP 12 (5-19); BLOOD UREA NITROGEN 13 mg/dL (7-20); CALCIUM 8.1 mg/dL (8.4-10.2); CARBON DIOXIDE 13 mmol/L (22-30); CHLORIDE 105 mmol/L (98-107); GLUCOSE 379 mg/dL (75-110); POTASSIUM 3.9 mmol/L (3.6-5.0)
[2019-10-30] MEDS ORDERED: INSULIN LISPRO 100 UNIT/ML 3 ML VIAL SUBCUT ONE (02:00)
[2019-10-30] MEDS ORDERED: RINGERS SOLUTION,LACTATED 1,000 ML IV ONE ×2 (02:15→03:15)
[2019-10-30] MEDS: TRAMADOL HCL 50 MG TABLET PO PRN (03:37)
[2019-10-30 04:10] LABS: ANION GAP 13 (5-19); BLOOD UREA NITROGEN 10 mg/dL (7-20); CALCIUM 8.4 mg/dL (8.4-10.2); CARBON DIOXIDE 12 mmol/L (22-30); CHLORIDE 108 mmol/L (98-107); GLUCOSE 225 mg/dL (75-110); POTASSIUM 3.4 mmol/L (3.6-5.0)
[2019-10-30] MEDS: HEPARIN SOD (PORCINE) 5,000 UNIT/ML 1 ML VIAL SUBCUT SCH (05:52)
[2019-10-30 07:01] LABS: ABSOLUTE EOSINOPHILS # (AUTO) 0.2 10^3/uL (0.0-0.6); ABSOLUTE LYMPHOCYTES (AUTO) 2.8 10^3/uL (0.5-4.7); ABSOLUTE MONOCYTES (AUTO) 0.8 10^3/uL (0.1-1.4); BASOPHILS % (AUTO) 0.5 % (0-2); EOSINOPHILS % (AUTO) 1.7 % (0-6); HEMATOCRIT 31.3 % (36.0-47.0); LYMPHOCYTES % (AUTO) 28.5 % (13-45); MEAN CORPUSCULAR HEMOGLOBIN 28.6 pg (27.0-33.4); MEAN CORPUSCULAR HGB CONC 33.8 g/dL (32.0-36.0); MEAN CORPUSCULAR VOLUME 85 fl (80-97); MONOCYTES % (AUTO) 7.8 % (3-13); PLATELET COUNT 283 10^3/uL (150-450); RED BLOOD COUNT 3.71 10^6/uL (3.72-5.28); RED CELL DISTRIBUTION WIDTH 16.4 % (11.5-14.0); SEGMENTED NEUTROPHILS % (AUTO) 61.5 % (42-78); TOTAL CELLS COUNTED % (AUTO) 100 %; WHITE BLOOD COUNT 9.8 10^3/uL (4.0-10.5)
[2019-10-30 07:05] LABS: HEMOGLOBIN 10.6 g/dL (12.0-15.5)
[2019-10-30 07:22] LABS: ANION GAP 5 (5-19); BLOOD UREA NITROGEN 10 mg/dL (7-20); CALCIUM 8.4 mg/dL (8.4-10.2); CARBON DIOXIDE 20 mmol/L (22-30); CHLORIDE 108 mmol/L (98-107); GLUCOSE 107 mg/dL (75-110); POTASSIUM 3.3 mmol/L (3.6-5.0)
[2019-10-30] MEDS ORDERED: HUM INSULIN NPH/REG INSULIN HM 100 UNIT/1 ML 3 ML SUBCUT SCH ×2 (08:00)
[2019-10-30] MEDS ORDERED: POTASSIUM CHLORIDE 10 MEQ TABLET.ER PO ONE (08:00)
[2019-10-30] MEDS: INSULIN LISPRO 100 UNIT/ML 3 ML VIAL SUBCUT SCH ×2 (08:32→11:42)
[2019-10-30] MEDS ORDERED: INSULIN GLARGINE,HUM.REC.ANLOG 1,000 UNIT/10 ML VIAL SUBCUT SCH (10:00)
[2019-10-30 11:48] VITALS: BP 140/99
--- NOTE | 2019-10-30 13:03 | PDOC DISCHARGE SUMMARY ---
Impression - Admit/DC Date/PCP Admission Date/Primary Care Provider: 10/29/19 05:19 Discharge Date: 10/30/19 - Discharge Diagnosis (1) DKA (diabetic ketoacidoses) Is this a current diagnosis for this admission?: Yes (2) Vomiting Is this a current diagnosis for this admission?: Yes (3) Leukocytosis Is this a current diagnosis for this admission?: Yes (4) Hyperkalemia Is this a current diagnosis for this admission?: Yes - Additional Information Discharge Diet: As Tolerated, Diabetic Discharge Activity: Activity As Tolerated Referrals: follow-up, out of town [Other] JAMILAH MONCADA MD [EMERITUS] - 10/31/19 10:45 am Prescriptions: Insulin Aspart [Novolog] See Protocol SQ AC #10 ml Home Medications: Cephalexin Monohydrate [Keflex 500 mg Capsule] 500 mg PO Q6 MDD FILLED 10/23 FOR 8 DAY SUPPLY 10/29/19 Insulin Aspart [Novolog] See Protocol SQ AC #10 ml 10/30/19 Insulin Glargine,Hum.rec.anlog [Lantus (Pyxis) Insulin 100 Unit/1 ml 10 ml] 50 unit SUBCUT Q12 10/30/19 History of Present Illiness History of Present Illness: According to admitting provider: 29-year-old female, history of DM 1 who presented to the ED with nausea, vomiting, body aches, headaches, thirst and frequent urination. Patient states that she has been compliant with her insulin and that her glucose earlier today was 209. She denies any source of known infection and has not had any obvious sick contacts. Patient also denies alcohol, recreational drugs or any other medical history. In the ED, glucose was found to be severely elevated. Bicarbonate level was 5 and CO2 level was 12. Patient was started on treatment for DKA with severe anion gap acidosis. She was transferred to the intensive care unit for severe DKA and metabolic derangement. She was started on IV fluids and insulin drip. Hospital Course Hospital Course: Patient was admitted to the hospital after presenting with vomiting and was found to be hyperglycemic. She was initially admitted to the ICU and she was found to have severe diabetic ketoacidosis with BMP revealing initial blood sugar reading of 725, hyperkalemia 5.8, pseudohyponatremia and bicarbonate level of less than 5. Venous blood gas revealed pH of 7.06 and bicarb of 3.6 with PCO2 of 12.8 indicating for severe metabolic acidosis. CBC also significant for significant leukocytosis of 24.9 but work-up for infectious source was unremarkable last urinalysis was negative for infection and chest x-ray was clear. Vital signs showed the patient was afebrile. She was given large amounts of IV fluid hydration and started on insulin drip. Her DKA was treated adequately and her anion gap was closed and she was downgraded to the IMCU yesterday. She was transitioned to Lantus last night and this morning her blood sugar is within normal limits. Her hemoglobin A1c is 10 which indicates poor control of her diabetes. Patient states that she takes Lantus 50 units twice a day as well as NovoLog sliding scale at home and she is scheduled to see her primary care provider tomorrow. I have given patient strict instructions to keep a log of her blood sugar readings so as to guide her primary care provider and adequately adjusting her regimen. Patient denies any noncompliance. She states she has a glucometer, test strips and lancets at home and that she has more than enough supply of her Lantus. Have given her a refill of her NovoLog which he uses for sliding scale. Today, patient's mentation is normal, Her vomiting has stopped and she is eager to go home. Physical Exam Vital Signs: Temp Pulse Resp BP Pulse Ox 98.1 F 86 20 140/99 H 99 10/30/19 11:47 10/30/19 11:47 10/30/19 11:47 10/30/19 11:47 10/30/19 11:47 Intake & Output 10/29/19 10/30/19 10/31/19 06:59 06:59 06:59 Intake Total 1033 1372 1000 Output Total 1053 Balance 1080 007 1721 Weight 67.2 kg 71.6 kg General appearance: PRESENT: no acute distress, cooperative Respiratory exam: PRESENT: symmetrical, unlabored. ABSENT: accessory muscle use, retraction, tachypnea Cardiovascular exam: ABSENT: tachycardia Neurological exam: PRESENT: alert, awake, oriented to person, oriented to place, oriented to time, oriented to situation Results Laboratory Results: WBC 9.8 10^3/uL (4.0-10.5) 10/30/19 06:30 RBC 3.71 10^6/uL (3.72-5.28) L 10/30/19 06:30 Hgb 10.6 g/dL (12.0-15.5) L D 10/30/19 06:30 Hct 31.3 % (36.0-47.0) L 10/30/19 06:30 MCV 85 fl (80-97) 10/30/19 06:30 MCH 28.6 pg (27.0-33.4) 10/30/19 06:30 MCHC 33.8 g/dL (32.0-36.0) 10/30/19 06:30 RDW 16.4 % (11.5-14.0) H 10/30/19 06:30 Plt Count 283 10^3/uL (150-450) 10/30/19 06:30 Lymph % (Auto) 28.5 % (13-45) 10/30/19 06:30 [place] % (Auto) 7.8 % (3-13) 10/30/19 06:30 Eos % (Auto) 1.7 % (0-6) 10/30/19 06:30 Baso % (Auto) 0.5 % (0-2) 10/30/19 06:30 Absolute Neuts (auto) 6.0 10^3/uL (1.7-8.2) 10/30/19 06:30 Absolute Lymphs (auto) 2.8 10^3/uL (0.5-4.7) 10/30/19 06:30 Absolute Monos (auto) 0.8 10^3/uL (0.1-1.4) 10/30/19 06:30 Absolute Eos (auto) 0.2 10^3/uL (0.0-0.6) 10/30/19 06:30 Absolute Basos (auto) 0.0 10^3/uL (0.0-0.2) 10/30/19 06:30 Seg Neutrophils % 61.5 % (42-78) 10/30/19 06:30 VBG pH 7.06 (7.30-7.42) L* 10/29/19 02:32 VBG pCO2 12.8 mmHg (35-63) L* 10/29/19 02:32 VBG HCO3 3.6 mmol/L (20-32) L 10/29/19 02:32 VBG Base Excess -24.6 mmol/L 10/29/19 02:32 Sodium 132.8 mmol/L (137-145) L 10/30/19 06:30 Potassium 3.3 mmol/L (3.6-5.0) L 10/30/19 06:30 Chloride 108 mmol/L (98-107) H 10/30/19 06:30 Carbon Dioxide 20 mmol/L (22-30) L 10/30/19 06:30 Anion Gap 5 (5-19) 10/30/19 06:30 BUN 10 mg/dL (7-20) 10/30/19 06:30 Creatinine 0.56 mg/dL (0.52-1.25) 10/30/19 06:30 Est GFR ( Amer) > 60 (>60) 10/30/19 06:30 Est GFR (MDRD) Non-Af > 60 (>60) 10/30/19 06:30 Glucose 107 mg/dL (75-110) 10/30/19 06:30 POC Glucose 107 mg/dL (70-110) 10/30/19 11:33 Hemoglobin A1c % 10.1 % (4.7-6.0) H 10/30/19 06:30 Calcium 8.4 mg/dL (8.4-10.2) 10/30/19 06:30 Phosphorus 3.5 mg/dL (2.5-4.5) 10/29/19 07:00 Magnesium 1.9 mg/dL (1.6-2.3) 10/29/19 07:00 Total Bilirubin 0.4 mg/dL (0.2-1.3) 10/29/19 02:32 Direct Bilirubin 0.0 mg/dL (0.0-0.4) 10/29/19 02:32 Neonat Total Bilirubin Not Reportable 10/29/19 02:32 Neonat Direct Bilirubin Not Reportable 10/29/19 02:32 Neonat Indirect Bili Not Reportable 10/29/19 02:32 AST 22 U/L (14-36) 10/29/19 02:32 ALT 20 U/L (<35) 10/29/19 02:32 Alkaline Phosphatase 119 U/L (38-126) 10/29/19 02:32 Total Protein 8.0 g/dL (6.3-8.2) 10/29/19 02:32 Albumin 4.8 g/dL (3.5-5.0) 10/29/19 02:32 Serum HCG, Qual NEGATIVE (NEGATIVE) 10/29/19 02:32 Urine Color YELLOW 10/29/19 04:30 Urine Appearance SLIGHTLY-CLOUDY 10/29/19 04:30 Urine pH 6.0 (5.0-9.0) 10/29/19 04:30 Ur Specific [place] 1.020 10/29/19 04:30 Urine Protein 100 mg/dL (NEGATIVE) H 10/29/19 04:30 Urine Glucose (UA) >=500 mg/dL (NEGATIVE) H 10/29/19 04:30 Urine Ketones 80 mg/dL (NEGATIVE) H 10/29/19 04:30 Urine Blood LARGE (NEGATIVE) H 10/29/19 04:30 Urine Nitrite NEGATIVE (NEGATIVE) 10/29/19 04:30 Urine Bilirubin NEGATIVE (NEGATIVE) 10/29/19 04:30 Urine Urobilinogen NEGATIVE mg/dL (<2.0) 10/29/19 04:30 Ur Leukocyte Esterase NEGATIVE (NEGATIVE) 10/29/19 04:30 Urine WBC (Auto) 44 /HPF 10/29/19 04:30 Urine RBC (Auto) >182 /HPF 10/29/19 04:30 Urine Bacteria (Auto) 1+ /HPF 10/29/19 04:30 Squamous Epi Cells Auto 4 /HPF 10/29/19 04:30 Urine Mucus (Auto) RARE /LPF 10/29/19 04:30 Urine Ascorbic Acid NEGATIVE (NEGATIVE) 10/29/19 04:30 Urine Opiates Screen NEGATIVE 10/29/19 04:30 Urine Methadone Screen NEGATIVE 10/29/19 04:30 Ur Barbiturates Screen NEGATIVE 10/29/19 04:30 Ur Phencyclidine Scrn NEGATIVE 10/29/19 04:30 Ur Amphetamines Screen NEGATIVE 10/29/19 04:30 U Benzodiazepines Scrn NEGATIVE 10/29/19 04:30 Urine Cocaine Screen NEGATIVE 10/29/19 04:30 U Marijuana (THC) Screen NEGATIVE 10/29/19 04:30 Impressions: Chest X-Ray 10/29/19 04:22 IMPRESSION: Negative chest copyright 2011 [employer]- All Rights Reserved Plan Time Spent: Less than 30 Minutes Stroke Is this a Stroke Patient?: No Acute Heart Failure - Is this a Heart Failure Patient?: No
== END 2019-10-30 13:06 | disposition home or self-care (01) | DRG 639 ==
LOC: ER 23:00 → EH 10-29 05:19 → ICU 10-29 06:15 → 3W 10-29 18:00
PROVIDERS: ADMIT Anesthesiology; ATTEND Internal Medicine
PROC: 02HV33Z Insertion of Infusion Device into Superior Vena Cava, Percutaneous Approach (ICD-10-PCS; principal; 2019-10-29)
DX: E10.10 Type 1 diabetes mellitus with ketoacidosis without coma (principal); E87.5 Hyperkalemia; F17.210 Nicotine dependence, cigarettes, uncomplicated; Z79.4 Long term (current) use of insulin; Z79.899 Other long term (current) drug therapy
CPT/HCPCS: 36415; 71045; 80048; 80053; 80307; 81001; 82803; 82962; 83036; 83735; 84100; 84703; 85025; 87040; 93005; 93010; 96361; 96372; 96374; 99291; J1200; J1642; J1644; J1815; J2060; J2550; J3490; J7120